=== PATIENT | male | born 1965 | race Caucasian/White ===

== ENCOUNTER 2024-06-17 18:47 | Emergency (ER) | payer BC, SELFPAY ==
[2024-06-17 18:57] VITALS: BP 156/90; PULSE 86; RESP 18; TEMP 36.7; O2SAT 98; BMI 29.5
--- NOTE | 2024-06-17 19:04 | ED.GENADULT ---
HPI - General Adult General Time Seen by Provider: 19:04 Date Seen: 06/17/24 Chief complaint: Abdominal Pain Stated complaint: Upper GI-heartburn for a week Time Seen by Provider: 06/17/24 18:48 Source: patient and RN notes reviewed Mode of arrival: ambulatory Limitations: no limitations History of Present Illness HPI narrative: This 59-year-old male is coming in with burning pain that goes from his mid chest down into his epigastric area. It is been present for about a week. Can drink water, coffee, soda, eat and it does not change it. He baseline is on omeprazole 40 mg daily for GERD. He has not felt any regurgitant symptoms coming up. This is keeping him awake at night at times. He states with all the medicines he is on he will vacillate between diarrhea and constipation. Yesterday was the 1st time he had had a stool in about a week, he had not had a stool since this discomfort started. This stool was darker grayish in color per his report, there was a little blood but he does note he has a hemorrhoid. Stool was not darker or tarry. He denies any significant abdominal pain but does point to the epigastric area where he is feeling it. He does smoke, no alcohol use. Patient is diabetic, has a history of GERD, history of ulcer disease before. He is unsure of when he last had any scopes done. He still has his gallbladder. No fevers. No nausea or vomiting. He is not aware of ever being treated for H pylori. Related Data Home Medications ?Medication ?Instructions ?Recorded ?Confirmed albuterol sulfate 90 mcg/actuation 1 inh inhalation Q4-6H PRN 06/17/24 06/17/24 aerosol inhaler bupropion HCl 450 mg 24 hr tablet, 450 mg PO DAILY 06/17/24 06/17/24 extended release dulaglutide 4.5 mg/0.5 mL 4.5 mg subcut QWEEK 06/17/24 06/17/24 subcutaneous [facility] ([facility] escitalopram oxalate 20 mg tablet 20 mg PO DAILY 06/17/24 06/17/24 glimepiride 4 mg tablet 4 mg PO DAILY 06/17/24 06/17/24 lisinopril 20 1 tab PO DAILY 06/17/24 06/17/24 mg-hydrochlorothiazide 12.5 mg tablet metformin 1,000 mg tablet 1,000 mg PO BID 06/17/24 06/17/24 omeprazole 40 mg capsule,delayed 40 mg PO DAILY 06/17/24 06/17/24 release sildenafil 100 mg tablet 100 mg PO DAILY PRN 06/17/24 06/17/24 simvastatin 10 mg tablet 10 mg PO DAILY 06/17/24 06/17/24 trazodone 100 mg tablet 100 mg PO QHS PRN 06/17/24 06/17/24 Allergies Allergy/AdvReac Type Severity Reaction Status Date / Time metoclopramide [From Reglan] AdvReac Intermediate Hives Verified 06/17/24 18:53 Review of Systems Status of ROS: Reports: 6 or more systems reviewed and unremarkable except as noted in History and below [facility] Social History Non-prescribed substance use: denies use Exam Const: Vital Signs, click to edit/add: Vital Signs - 24 hr 06/17/24 18:57 Temperature 98.1 F Pulse Rate [Pulse Oximeter] 86 Respiratory Rate 18 Blood Pressure [Ri ght Upper Arm] 156/90 H Pulse Oximetry 98 Oxygen Delivery Me thod Room Air Patient is alert, interactive, no apparent distress. Ambulatory into the ED of his own accord. Sclera clear, conjugate gaze. Seek in complete sentences. Lungs are clear, good air entry, no wheezing or crackles. CV regular rate and rhythm, no murmur, normal S1-S2, no S3-S4. Abdomen is soft, nondistended, normal bowel sounds, definite epigastric tenderness without rebound or guarding, no right upper quadrant pain and no pain elsewhere in the abdomen outside of the epigastric area. No organomegaly or masses noted. He has no lower extremity edema. Skin visualized without any rash or jaundice. Documenting provider has reviewed patient's vital signs: yes Course Course ED Course: 59-year-old male with burning pain from the epigastric area into the chest, epigastric pain. This certainly could be esophageal disease with esophagitis, peptic ulcer disease, gastritis, need to entertain possible etiologies like pancreatitis or even cardiac disease. Patient will have CT imaging with IV contrast of his abdomen pelvis, EKG, full complement of labs which will include lipase and troponin. He understands if his workup is reassuring here, may need to have more urgent EGD done. Reevaluation(s) Time of Reevaluation #1: 21:10 Reevaluation #1: Reviewed patient's CT findings with him. He does have cholelithiasis but is absolutely nontender on his right upper quadrant, liver functions are all completely normal. His lipase is just minimally elevated but there is no pancreatic changes on CT imaging. Labs are grossly otherwise reassuring outside of the minimally elevated lipase. Have reviewed this with our general surgeon, she agrees that it is likely complication of reflux, maybe severe gastritis verses early ulcer disease. We will have him try to increase his omeprazole to twice a day, follow up in clinic to have H pylori testing an EGD scheduled. He is seen at [facility] and thus reviewed with him he should check with his primary 1st about having EGD done through their system, he is always welcome to have it done here if it can be done more expeditiously and that is what they want. If he is worsening, he will return here. He has had no stool production here, is hungry and requesting to eat. Vital Signs Vital signs: Initial Vital Signs Temperature 98.1 F 06/17/24 18:57 Temperature Source Temporal Artery Scan 06/17/24 18:57 Pulse Rate 86 06/17/24 18:57 Respiratory Rate 18 06/17/24 18:57 Blood Pressure 156/90 H 06/17/24 18:57 Blood Pressure Mean 112 H 06/17/24 18:57 Pulse Oximetry 98 06/17/24 18:57 Oxygen Delivery Method Room Air 06/17/24 18:57 Vital Signs Temperature 98.1 F 06/17/24 18:57 Pulse Rate 86 06/17/24 18:57 Respiratory Rate 18 06/17/24 18:57 Blood Pressure 156/90 H 06/17/24 18:57 Pulse Oximetry 98 06/17/24 18:57 Oxygen Delivery Method Room Air 06/17/24 18:57 Temperature 98.1 F 06/17/24 18:57 Pulse Rate 86 06/17/24 18:57 Respiratory Rate 18 06/17/24 18:57 Blood Pressure 156/90 H 06/17/24 18:57 Pulse Oximetry 98 06/17/24 18:57 Oxygen Delivery Method Room Air 06/17/24 18:57 Medical Decision Making Lab Data Labs: Lab Results 06/17/24 Range/Units 19:27 WBC 9.58 (4.50-11.00) K/uL RBC 4.96 (4.30-5.90) m/uL Hgb 14.9 (13.5-17.5) gm/dL Hct 42.0 (37.0-53.0) % MCV 85 (80-100) fL MCH 30 (26-34) pg MCHC 36 (32-36) gm/dL RDW Coeff of Juli 11.7 (11.5-15.5) % Plt Count 234 (140-440) K/uL Neut % (Auto) 61.8 (42.0-72.0) % Lymph % (Auto) 26.5 (20-44) % [place] % (Auto) 7.9 (0.0-11.0) % Eos % (Auto) 3.2 (0.0-7.0) % Baso % (Auto) 0.4 (0.0-3.0) % Neut # (Auto) 5.91 (1.7-7.0) K/uL Lymph # (Auto) 2.54 (0.90-2.90) K/uL [place] # (Auto) 0.80 (0.00-0.90) K/UL Eos # (Auto) 0.31 (0.00-0.50) K/uL Baso # (Auto) 0.04 (0.00-0.30) K/uL Abs Immat Gran (auto) 0.02 (0.00-0.30) K/uL Imm/Tot Granulo (auto) 0.2 % Sodium 135 (135-149) mmol/L Potassium 3.7 (3.6-5.1) mmol/L Chloride 101 (96-114) mmol/L Carbon Dioxide 26 (20-32) mmol/L Anion Gap 8 (7-15) mEq/L BUN 17 (7-30) mg/dL Creatinine 0.8 (0.5-1.5) mg/dL Estimated Creat Clear 101.88 Estimated GFR 103 ml/min Glucose 240 H (60-115) mg/dL Calcium 9.2 (8.4-10.6) mg/dL Total Bilirubin 0.5 (0.1-1.5) mg/dL Direct Bilirubin 0.1 (0.0-0.5) mg/dL AST 19 (12-35) U/L ALT 22 (4-50) U/L Alkaline Phosphatase 79 (40-150) U/L Troponin I < 0.01 L (0.01-0.04) ng/mL C-Reactive Protein < 0.5 L (0.5-1.0) mg/dL Total Protein 6.8 (6.0-8.3) g/dL Albumin 4.5 (3.3-5.0) g/dL Lipase 487 H (23-300) U/L Imaging Data CT scan - abdomen: Attestation: I have reviewed the pertinent imaging results. Radiologist's impression: Patient: ARUNA BARRAZA Facility:?[facility] Patient ID:?[id number] Site Patient ID:?[id number]. Site :?[id number] Study:?CT-Abdomen/Pelvis W/IV-06/17/2024 8:21:14 PM Ordering Physician:Aishwarya Jones Final Report: INDICATION: Abdominal pain. TECHNIQUE: Multiplanar CT examination of the abdomen and pelvis was performed after the administration of 98 mL Isovue 370 intravenous contrast. COMPARISON: None. FINDINGS: Lower chest: No focal consolidation. Normal heart size. No pleural effusions or pneumothorax. Subsegmental dependent atelectasis. Liver: Unremarkable. Gallbladder: Cholelithiasis. No gallbladder wall thickening or pericholecystic edema. Biliary: Unremarkable. Pancreas: Within normal limits. Spleen: Unremarkable. Adrenal glands: Unremarkable. Renal/ureters/bladder: Normal in size and symmetrically enhancing. No obstructive uropathy. No hydronephrosis or obstructive urinary calculi. Subcentimeter left renal hypodensity is too small to characterize. The ureters appear unremarkable. The bladder is within normal limits. Pelvis: Mild prostatomegaly. Gastrointestinal: No bowel wall thickening or bowel obstruction. Normal appendix. Mild sigmoid colonic diverticulosis. No pericolonic fat stranding to suggest acute diverticulitis. Mild colonic stool burden. Vasculature: No aortic aneurysm. The portal vein remains patent. Moderate aortoiliac atherosclerotic calcifications. Lymph nodes: No pathologic lymphadenopathy by size criteria. Peritoneum: No free fluid or pneumoperitoneum. No drainable fluid collections. Abdominal wall/soft tissues: Unremarkable.. Small fat containing umbilical hernia. Bones: No acute osseous abnormalities. Mild multilevel degenerative changes of the thoracolumbar spine. IMPRESSION: 1. No acute abdominopelvic pathology. The etiology of the patient`s abdominal pain is not elucidated on this examination. 2. Cholelithiasis without CT evidence of acute cholecystitis. 3. Mild colonic diverticulosis without CT evidence of acute diverticulitis. Please note that all CT scans at this facility use dose modulation, iterative reconstruction, and/or weight-based dosing when appropriate to reduce radiation dose to as low as reasonably achievable. Dictated by Casper Rios MD @ 06/17/2024 8:28:52 PM (Electronic Signature) ECG Data Attestation: I personally reviewed and interpreted this ECG as follows: (Normal sinus rhythm, 77 beats per minute. Some artifact. No definitive ischemic change, no infarct noted.) Prior ECG tracings: not available for review Discharge Plan Discharge Clinical Impression: Abdominal pain, epigastric Patient Disposition: Home, Self-Care Condition: Stable Instructions: Gallstones (ED), GERD (Gastroesophageal Reflux Disease) (ED), Epigastric Pain (ED) Additional Instructions: Increase her omeprazole to 40 mg twice a day for 2 weeks. Need to get scheduled in your clinic for a follow-up JAMES; need your lipase rechecked, H pylori tested for and an EGD scheduled. You do have gallstones, they become symptomatic in the future, can seek evaluation for surgical removal of the gallbladder. In the meantime, if you have increasing abdominal pain, started having blood in the stools or dark tarry stools, abdominal pain is accompanied by nausea vomiting or fever, have further concerns, please seek re-evaluation. Since it does not seem like anything you eat or drink bother you at this time, am not recommending any restrictions on diet. Activity Level: Activity as Tolerated Prescriptions: No Action sildenafil 100 mg tablet 100 mg PO DAILY PRN Rx Instructions: administer 30 minutes to 4 hours before activity albuterol sulfate 90 mcg/actuation HFA aerosol inhaler 1 inh inhalation Q4-6H PRN trazodone 100 mg tablet 100 mg PO QHS PRN bupropion HCl 450 mg tablet extended release 24 hr 450 mg PO DAILY simvastatin 10 mg tablet 10 mg PO DAILY glimepiride 4 mg tablet 4 mg PO DAILY lisinopril-hydrochlorothiazide 20-12.5 mg tablet 1 tab PO DAILY escitalopram oxalate 20 mg tablet 20 mg PO DAILY Trulicity 4.5 mg/0.5 mL pen injector 4.5 mg subcut QWEEK metformin 1,000 mg tablet 1,000 mg PO BID omeprazole 40 mg capsule,delayed release(DR/EC) 40 mg PO DAILY Follow Up/Referrals: Provider,Not a Local [Primary Care Provider] - Stand Alone Forms: [employer] Info Instructions
--- NOTE | 2024-06-17 19:10 | CRLHL7_ITS ---
For Patients: As a result of the Century Cures Act, medical imaging exams and procedure reports are released immediately into your electronic medical record. You may view this report before your referring provider. If you have questions, please contact your health care provider. INDICATION: Abdominal pain. TECHNIQUE: Multiplanar CT examination of the abdomen and pelvis was performed after the administration of 98 mL Isovue 370 intravenous contrast. COMPARISON: None. FINDINGS: Lower chest: No focal consolidation. Normal heart size. No pleural effusions or pneumothorax. Subsegmental dependent atelectasis. Liver: Unremarkable. Gallbladder: Cholelithiasis. No gallbladder wall thickening or pericholecystic edema. Biliary: Unremarkable. Pancreas: Within normal limits. Spleen: Unremarkable. Adrenal glands: Unremarkable. Renal/ureters/bladder: Normal in size and symmetrically enhancing. No obstructive uropathy. No hydronephrosis or obstructive urinary calculi. Subcentimeter left renal hypodensity is too small to characterize. The ureters appear unremarkable. The bladder is within normal limits. Pelvis: Mild prostatomegaly. Gastrointestinal: No bowel wall thickening or bowel obstruction. Normal appendix. Mild sigmoid colonic diverticulosis. No pericolonic fat stranding to suggest acute diverticulitis. Mild colonic stool burden. Vasculature: No aortic aneurysm. The portal vein remains patent. Moderate aortoiliac atherosclerotic calcifications. Lymph nodes: No pathologic lymphadenopathy by size criteria. Peritoneum: No free fluid or pneumoperitoneum. No drainable fluid collections. Abdominal wall/soft tissues: Unremarkable.. Small fat containing umbilical hernia. Bones: No acute osseous abnormalities. Mild multilevel degenerative changes of the thoracolumbar spine. IMPRESSION: 1. No acute abdominopelvic pathology. The etiology of the patient`s abdominal pain is not elucidated on this examination. 2. Cholelithiasis without CT evidence of acute cholecystitis. 3. Mild colonic diverticulosis without CT evidence of acute diverticulitis. Please note that all CT scans at this facility use dose modulation, iterative reconstruction, and/or weight-based dosing when appropriate to reduce radiation dose to as low as reasonably achievable. Dictated by Casper Rios MD @ 06/17/2024 8:28:52 PM (Electronically Signed)
[2024-06-17 19:37] LABS: Basophils Absolute Auto 0.04 K/uL (0.00-0.30); Basophils Percent Auto 0.4 % (0.0-3.0); Eosinophils Absolute Auto 0.31 K/uL (0.00-0.50); Eosinophils Percent Auto 3.2 % (0.0-7.0); Hemoglobin* 14.9 gm/dL (13.5-17.5); Immature Granulocytes Abs Auto 0.02 K/uL (0.00-0.30); Immature Granulocytes Pct Auto 0.2 %; Lymphocytes Absolute Auto 2.54 K/uL (0.90-2.90); Lymphocytes Percent Auto 26.5 % (20-44); Mean Corpuscular HGB Conc 36 gm/dL (32-36); Mean Corpuscular Hemoglobin 30 pg (26-34); Mean Corpuscular Volume 85 fL (80-100); Monocytes Percent Auto 7.9 % (0.0-11.0); Neutrophils Absolute Auto 5.91 K/uL (1.7-7.0); Neutrophils Percent Auto 61.8 % (42.0-72.0); Platelet Count* 234 K/uL (140-440); RDW Coefficient of Variation % 11.7 % (11.5-15.5); Red Blood Count 4.96 m/uL (4.30-5.90); White Blood Count* 9.58 K/uL (4.50-11.00)
[2024-06-17 19:52] LABS: Chloride* 101 mmol/L (96-114)
[2024-06-17 19:53] LABS: Albumin* 4.5 g/dL (3.3-5.0); Sodium* 135 mmol/L (135-149)
[2024-06-17 19:54] LABS: Potassium* 3.7 mmol/L (3.6-5.1)
[2024-06-17 19:55] LABS: Creatinine* 0.8 mg/dL (0.5-1.5); Est. Creatinine Clearance* 101.88; Estimated Glomerular Filt Rate 103 ml/min
[2024-06-17 19:56] LABS: Alkaline Phosphatase* 79 U/L (40-150); Anion Gap 8 mEq/L (7-15); Aspartate Amino Transferase* 19 U/L (12-35); Bilirubin Direct* 0.1 mg/dL (0.0-0.5); Bilirubin Total* 0.5 mg/dL (0.1-1.5); Carbon Dioxide* 26 mmol/L (20-32); Total Protein* 6.8 g/dL (6.0-8.3)
[2024-06-17 19:57] LABS: Alanine Aminotransferase* 22 U/L (4-50); Blood Urea Nitrogen* 17 mg/dL (7-30); Calcium* 9.2 mg/dL (8.4-10.6); Glucose* 240 mg/dL (60-115); Lipase* 487 U/L (23-300)
[2024-06-17 20:09] LABS: C Reactive Protein* < 0.5 mg/dL (0.5-1.0); Troponin I* < 0.01 ng/mL (0.01-0.04)
[2024-06-17 20:10] LABS: Slide Review Reflex No
== END 2024-06-17 21:24 | disposition home or self-care (01) ==
PROVIDERS: Emergency Provider Family Medicine
DX: R10.13 Epigastric pain (principal)
CPT/HCPCS: 36415; 74177; 80053; 82248; 83690; 84484; 85025; 86140; 93005; 99284; 99285; Q9967